=== PATIENT | female | born 1960 | race Two or more races ===

== ENCOUNTER 2016-08-24 19:53 | Inpatient (IN) | payer OTHER ==
[~2016-08-24] VITALS: Ht 162.6 cm; Wt 77.6 kg
--- NOTE | 2016-08-24 19:53 | NUR ---
PT TO ER [facility] FROM HOME FOR AMS, HYPOGLYCEMIA. PER EMS BS 51. PT GIVEN D10 IV CHUTE TAPPER. PT VITAL SIGNS STABLE UPON ARRIVAL. PT CHANGED INTO GOWN AND CONNECTED TO MONITOR. WILL CONT TO MONITOR PT.
--- NOTE | 2016-08-24 20:20 | NUR ---
PT TO CT VIA [facility]
[2016-08-24 20:43] LABS: BASOPHILS % (AUTO) 0.4 % (0.0-2.0); EOSINOPHILS # (AUTO) 0.1 /CMM (0.0-0.7); EOSINOPHILS % (AUTO) 0.8 % (0.0-6.0); HEMATOCRIT 36 % (33-45); HEMOGLOBIN 11.5 g/dL (11.5-14.8); LYMPHOCYTES # (AUTO) 1.5 /CMM (0.8-4.8); LYMPHOCYTES % (AUTO) 18.9 % (20.0-44.0); MEAN CORPUSCULAR HEMOGLOBIN 25 PG (26.0-33.0); MEAN CORPUSCULAR HGB CONC 32 g/dl (31.0-36.0); MEAN CORPUSCULAR VOLUME 79 fL (82-100); MONOCYTES # (AUTO) 0.2 /CMM (0.1-1.30); MONOCYTES % (AUTO) 2.4 % (2.0-12.0); NEUTROPHILS # (AUTO) 6.2 /CMM (1.8-8.9); NEUTROPHILS % (AUTO) 77.5 % (43.0-81.0); PLATELET COUNT (AUTO) 257 /CMM (150-450); RDW COEFFICIENT OF VARIATION 15.4 (11.5-15.0); RED BLOOD CELL COUNT(AUTO) 4.52 MIL/uL (4.0-5.2)
[2016-08-24 20:54] LABS: CALCIUM, SERUM 8.7 mg/dL (8.5-10.1); CREATININE 1.7 mg/dL (0.6-1.3); POTASSIUM 5.8 mmol/L (3.5-5.1)
--- NOTE | 2016-08-24 20:54 | NUR ---
CALLED NURSING SUP. FOR TELE BED
[2016-08-24 20:57] LABS: INR 0.94 (0.87-1.13); PROTHROMBIN TIME 9.8 SECS (9.5-12.7)
--- NOTE | 2016-08-24 20:58 | NUR ---
URINE SAMPLE COLLECTED AND SENT TO LAB.
[2016-08-24 20:59] LABS: ALBUMIN 3.5 g/dL (3.4-5.0); BILIRUBIN,DIRECT 0.1 mg/dL (0.0-0.2); BILIRUBIN,TOTAL 0.3 mg/dL (0.2-1.0); TOTAL PROTEIN, SERUM 7.8 g/dL (6.4-8.2)
[2016-08-24 21:03] LABS: APPEARANCE,URINE Clear (CLEAR); BILIRUBIN,URINE Negative (NEGATIVE); BLOOD, URINE Small Ery/uL (NEGATIVE); COLOR,URINE Yellow (YELLOW); KETONES,URINE Negative (NEGATIVE); LEUKOCYTE ESTERASE ,URINE Negative (NEGATIVE); NITRITE, URINE Negative (NEGATIVE); PROTEIN,URINE 100 mg/dl (NEGATIVE); UGLUCOSE Negative (NEGATIVE); UROBILINOGEN,URINE 0.2 EU/dL (0.2)
--- NOTE | 2016-08-24 21:11 | NUR ---
DR. CATRACHITO ANDRE
[2016-08-24] MEDS ORDERED: SODIUM POLYSTYRENE SULFONATE 15 G/60 ML BOTTLE ONE (21:24)
[2016-08-24] MEDS ORDERED: DEXTROSE 50%-WATER 50 ML DISP.SYRIN ONE (21:24)
[2016-08-24] MEDS ORDERED: INSULIN REGULAR, HUMAN 100 UNIT/ML 10 ML VIAL ONE (21:25)
[2016-08-24] MEDS ORDERED: INSULIN REGULAR, HUMAN 100 UNIT/ML 10 ML VIAL IV ONE (21:30)
[2016-08-24] MEDS ORDERED: DEXTROSE 50%-WATER 50 ML DISP.SYRIN IV ONE (21:30)
[2016-08-24] MEDS ORDERED: ALBUTEROL FS 2.5 MG/3 ML VIAL.NEB NEB ONE (21:30)
[2016-08-24] MEDS ORDERED: SODIUM POLYSTYRENE SULFONATE 15 G/60 ML BOTTLE PO ONE (21:30)
--- NOTE | 2016-08-24 21:34 | NUR ---
WITNESSED PARTH RAYMUNDO RN ADMINISTER REGULAR INSULIN 10UNITS IVP G20 RIGHT THUMB.
[2016-08-24 21:36] LABS: ADD URINE CULTURE NO; BACTERIA,URINE Few /HPF (None Seen); HYALINE CASTS, URINE Few /LPF (None Seen); SQUAMOUS EPITHELIAL CELL,UR Few /HPF (None Seen); WBC,URINE 0-2 /HPF (0-3)
[2016-08-24] MEDS ORDERED: ALBUTEROL FS 2.5 MG/3 ML VIAL.NEB ONE (21:40)
--- NOTE | 2016-08-24 21:43 | NUR ---
REPORT GIVEN TO FAN PATRICIA FOR CONTINUATION OF CARE.
--- NOTE | 2016-08-24 21:53 | NUR ---
PT TRANSFERED TO VIA [facility] Laurent/ EMT AND RN./
[2016-08-24 22:00] VITALS: BP 151/80
--- NOTE | 2016-08-24 22:07 | NUR ---
ADMISSION NOTES: RECEIVED REPORT FROM CHAVIRA MACHINE HOOP MAKER, PT ADMITTED DUE TO HYPOGLYCEMIA, PT BROUGHT OT THE UNIT VIA AARONRSANIA, A/O X3, GREEK SPEAKING ONLY, UNDERSTAND BASIC [place]RAELI, DAUGHTER AT BED SIDE. ORIENTED PT TO UNIT POLICY AND HOURLY ROUNDING, PT HAS RIGHT THUMB IV G 20 PATENT AND FLUSHING WELL. NOTED JENNIFER AND BOTH KNEE BRUISE TAKEN PICTURES ATTACHED TO CHART, PT'S DAUGHTER CANT RECALL PT'S HOME MEDS BUT STATED SHE WILL BRING ALL THE MEDS IN AM, SHE ALSO CANT REMEMBER IF PT TAKING BLOOD THINNER, EVEN PT CANT RECALL ALL HER MEDS. BARRY SILVEIRA [phone], PT'S DAUGHTER. PT FULL CODE. NO OTHER SKIN ISSUES NOTED. INVENTORY OF BELONGINGS COMPLETED BY AICHA DELGADO. SAFETY PRECAUTIONS FOR FALL INITIATED CALL LIGHT IN REACH, WILL CONTINUE TO MONITOR.
[2016-08-24 22:30] VITALS: BP 151/88
[2016-08-24] MEDS ORDERED: ACETAMINOPHEN 325 MG TABLET PO PRN ×2 (22:30)
[2016-08-24] MEDS ORDERED: DEXTROSE 50%-WATER 50 ML DISP.SYRIN IV PRN (22:30)
[2016-08-24] MEDS ORDERED: ZOLPIDEM TARTRATE 5 MG TABLET PO PRN (22:30)
[2016-08-24] MEDS ORDERED: HYDROCODONE/APAP 5/325MG 1 EACH TABLET PO PRN (22:30)
[2016-08-24] MEDS ORDERED: IV 1/2NS 1000 ML 1,000 ML IV SCH (22:30)
[2016-08-24] MEDS ORDERED: IV 1/2NS 1000 ML 1,000 ML IV ONE (22:47)
[2016-08-24] MEDS ORDERED: IV SET PRIMARY PUMP SET 1 EA INFUS.SET MC ONE (22:47)
[2016-08-24] MEDS: INSULIN REGULAR, HUMAN 100 UNIT/ML 3 ML VIAL SQ PRN (23:18)
[2016-08-24] MEDS: BLOOD SUGAR DIAGNOSTIC 1 EACH STRIP IN SCH (23:19)
--- NOTE | 2016-08-24 23:19 | NUR ---
AIR BATTLE MANAGER NOTES: CHECKED BLOOD SUGAR AND REVEAL 189, 3UNITS OF INSULIN GIVEN PER SLIDING SCALE, PT ON DIABETIC DIET WITH ONGOING 1/2NS AT 100ML/HR, PER CULLET CRUSHER AND WASHER FAN ADAMS TO GIVE INSULIN COVERAGE, WILL MONITOR FOR ANY S/S/ OF HYPO OR HYPERGLYCEMIA
[2016-08-25] VITALS: BP 105/59
--- NOTE | 2016-08-25 02:15 | NUR ---
FURNACE RELINER NOTES: IV ACCESS ON RIGHT THUMB UNABLE TO FLUSH, TRIED TO REINSERT IV ON ARMS AND HANDS BUT NOT SUCCESSFUL, CALLED COLOR FINISHER, SHE TRIED 3X BUT VEIN KEPT BLOWING, SHE FINALLY TRIED EJ, INSERTED IV ON LEFT EJ G 22, WILL GET AN ORDER FROM MD, PT REALLY NEED A LINE SINCE PT CAME DUE TO HYPOGLYCEMIA, PT FULL CODE
[2016-08-25] MEDS ORDERED: INSULIN REGULAR, HUMAN 100 UNIT/ML 10 ML VIAL ONE (03:54)
[2016-08-25 04:00] VITALS: BP 147/72
[2016-08-25 04:29] VITALS: BP 147/72
[2016-08-25 04:30] VITALS: BP 147/72
[2016-08-25] MEDS: BLOOD SUGAR DIAGNOSTIC 1 EACH STRIP IN SCH (06:34)
[2016-08-25 06:35] LABS: BASOPHILS % (AUTO) 0.3 % (0.0-2.0); EOSINOPHILS % (AUTO) 0.4 % (0.0-6.0); HEMATOCRIT 28 % (33-45); LYMPHOCYTES # (AUTO) 1.7 /CMM (0.8-4.8); LYMPHOCYTES % (AUTO) 15.6 % (20.0-44.0); MEAN CORPUSCULAR HEMOGLOBIN 26 PG (26.0-33.0); MEAN CORPUSCULAR HGB CONC 32 g/dl (31.0-36.0); MEAN CORPUSCULAR VOLUME 79 fL (82-100); MONOCYTES # (AUTO) 0.8 /CMM (0.1-1.30); MONOCYTES % (AUTO) 7.3 % (2.0-12.0); NEUTROPHILS # (AUTO) 8.4 /CMM (1.8-8.9); NEUTROPHILS % (AUTO) 76.4 % (43.0-81.0); PLATELET COUNT (AUTO) 245 /CMM (150-450); RDW COEFFICIENT OF VARIATION 16.2 (11.5-15.0); WHITE BLOOD COUNT (AUTO) 10.9 K/uL (4.3-11.0)
[2016-08-25] MEDS: INSULIN REGULAR, HUMAN 100 UNIT/ML 3 ML VIAL SQ PRN (06:35)
--- NOTE | 2016-08-25 06:35 | NUR ---
TRANSFUSION AIDE NOTES: CHECKED PT'S BLOOD SUGAR AND REVEAL 240, 4UNBITS OF INSULIN GIVEN PER SLIDING SCALE, PT ON 1800 ADA DIET, ALSO RECEIVING 1/2 NS AT 100ML/HR, WILL MONITOR PT FOR ANY SIGNS AND SYMPTOMS OF HYPOGLYCEMIA.
--- NOTE | 2016-08-25 06:55 | NUR ---
APPLICATIONS INSTRUCTOR NOTES: PER ANGIE KIM TO HAVE EXTERNAL JUGULAR IV ACCESS, EXPLAINED TO PT JESSI SORTO AND HYDROELECTRIC PRODUCTION MANAGER ONLY ABLE TO PLACED EJ IV ACCESS
--- NOTE | 2016-08-25 06:56 | NUR ---
SPEEDBOAT DRIVER CLOSING NOTES: PT SLEEPING, APPEARS CALM AND COMFORTABLE, REMAINS ON 2L VIA NC, NO FACIAL GRIMACE NOTED, LEFT EJ IV ACCESS REMAINS PATENT AND FLUSHING WELL, INFUSING WITH 1/2 NS AT 100ML/HR, REMAINS SINUS RHYTHM HR 75. VS REMAINS STABLE, NEEDS ATTENDED. PT'S DAUGHTER WILL BRING PT'S HOME MEDS IN AM. SAFETY PRECAUTION FOR FALL REMAINS ENGAGED, CALL LIGHT IN REACH, WILL ENDORSE TO DAY RN FOR DEX.
[2016-08-25 07:03] LABS: POTASSIUM 4.1 mmol/L (3.5-5.1)
--- NOTE | 2016-08-25 07:15 | NUR ---
RN NOTES RECEIVED PT IN BED. SLEEPING,EASY TO AROUSE. IN NO APPARENT DISTRESS. RESPIRATIONS EVEN AND UNLABORED. DENIES PAIN AND DISCOMFORT. CALL LIGHT WITHIN REACH. WILL CONTINUE TO MONITOR
[2016-08-25 07:23] LABS: ALBUMIN 2.8 g/dL (3.4-5.0); BILIRUBIN,TOTAL 0.2 mg/dL (0.2-1.0); CALCIUM, SERUM 7.5 mg/dL (8.5-10.1); CREATININE 1.8 mg/dL (0.6-1.3); TOTAL PROTEIN, SERUM 6.3 g/dL (6.4-8.2)
[2016-08-25 07:29] LABS: THYROID STIMULATING HORMONE 0.227 uIU/mL (0.358-3.74)
[2016-08-25 08:00] VITALS: BP 116/62
[2016-08-25] MEDS ORDERED: AMLODIPINE BESYLATE 10 MG TABLET PO SCH (09:00)
[2016-08-25 09:09] VITALS: BP 116/62
--- NOTE | 2016-08-25 09:30 | NUR ---
RN NOTES PT TOLERATED ALL MEDS. ATE 100% OF OFFERED BREAKFAST. SEEN AND EXAMINED BY DR WINSTON- WITH NEW ORDER FOR DISCHARGE HOME. NOTED AND CARRIED OUT. REPORTED TO MD PT'S COMPLAINT OF PAIN ON LEFT ARM AND SHOULDER- SAID NO APPARENT INJURY, NO NEED FOR XRAY. NOTED. DISCHARGE PAPERS AND INSTRUCTIONS DONE VIA EXIT CARE. DAUGHTER MADE AWARE OF ORDERS
--- NOTE | 2016-08-25 10:40 | NUR ---
RN NOTES PT DISCHARGED TO HOME ORDERED. VS WNL. IN NO DISTRESS. PICKED UP BY DAUGHTER; ASSISTED TO LOBBY BY ONE STAFF VIA WHEELCHAIR
== END 2016-08-25 10:35 | disposition home or self-care (01) | DRG 420 ==
LOC: ER 19:55 → TELE 21:24
PROVIDERS: ADMIT Internal Medicine; ATTEND Internal Medicine
DX: E11.649 Type 2 diabetes mellitus with hypoglycemia without coma (principal); G93.41 Metabolic encephalopathy; I12.9 Hypertensive chronic kidney disease with stage 1 through stage 4 chronic kidney disease, or unspecified chronic kidney disease; E11.22 Type 2 diabetes mellitus with diabetic chronic kidney disease; N18.9 Chronic kidney disease, unspecified; K21.9 Gastro-esophageal reflux disease without esophagitis; Z79.4 Long term (current) use of insulin; Z83.3 Family history of diabetes mellitus
CPT/HCPCS: 36415; 70450-TC; 71010-TC; 80048-TC; 80053-TC; 80061-TC; 80076-TC; 81000-TC; 82962-TC; 84443-TC; 85025-TC; 85730-TC; 87081-TC; A4606; J1815; J3490; Z7610

== ENCOUNTER 2017-08-08 17:09 | Inpatient (IN) | payer OTHER ==
[~2017-08-08] VITALS: Ht 160 cm; Wt 86.4 kg
[2017-08-08 10:00] VITALS: BP 138/85
[2017-08-08 11:50] VITALS: BP 118/57
--- NOTE | 2017-08-08 17:09 | NUR ---
[facility] for left flank pain since last night. facial grimacing noted. VSS RR even and unlabored. pending er md pinto
[2017-08-08] MEDS ORDERED: KETOROLAC TROMETHAMINE INJ 30 MG/ML VIAL IV STA (17:29)
[2017-08-08] MEDS ORDERED: KETOROLAC TROMETHAMINE INJ 30 MG/ML VIAL ONE (17:40)
[2017-08-08 17:41] LABS: BASOPHILS # (AUTO) 0.1 /CMM (0.0-0.2); BASOPHILS % (AUTO) 0.8 % (0.0-2.0); EOSINOPHILS % (AUTO) 2.9 % (0.0-6.0); HEMATOCRIT 35 % (33-45); HEMOGLOBIN 11.4 g/dL (11.5-14.8); LYMPHOCYTES # (AUTO) 2.4 /CMM (0.8-4.8); LYMPHOCYTES % (AUTO) 23.9 % (20.0-44.0); MEAN CORPUSCULAR HGB CONC 33 g/dl (31.0-36.0); MEAN CORPUSCULAR VOLUME 93 fL (82-100); MONOCYTES # (AUTO) 0.8 /CMM (0.1-1.30); NEUTROPHILS # (AUTO) 6.5 /CMM (1.8-8.9); NEUTROPHILS % (AUTO) 64.4 % (43.0-81.0); PLATELET COUNT (AUTO) 232 /CMM (150-450); RDW COEFFICIENT OF VARIATION 14.1 (11.5-15.0); RED BLOOD CELL COUNT(AUTO) 3.72 MIL/uL (4.0-5.2); WHITE BLOOD COUNT (AUTO) 10.1 K/uL (4.3-11.0)
--- NOTE | 2017-08-08 17:43 | NUR ---
Pt was medicated as ordered.
[2017-08-08 18:04] LABS: ALBUMIN 3.4 g/dL (3.4-5.0); BILIRUBIN,TOTAL 0.3 mg/dL (0.2-1.0); CALCIUM, SERUM 7.3 mg/dL (8.5-10.1); CREATININE 5.1 mg/dL (0.6-1.3); POTASSIUM 5.9 mmol/L (3.5-5.1); TOTAL PROTEIN, SERUM 7.5 g/dL (6.4-8.2)
--- NOTE | 2017-08-08 18:18 | NUR ---
In/Out catheter procedure done, no urine output noted. RICHARD Munoz notified.
[2017-08-08] MEDS ORDERED: DEXTROSE 50%-WATER 50 ML DISP.SYRIN IV ONE (19:00)
[2017-08-08] MEDS ORDERED: SODIUM POLYSTYRENE SULFONATE 15 G/60 ML BOTTLE PO ONE ×2 (19:00→21:00)
[2017-08-08] MEDS ORDERED: INSULIN REGULAR, HUMAN 100 UNIT/ML 10 ML VIAL IV ONE (19:00)
[2017-08-08] MEDS ORDERED: Calcium Gluconate 1GM/10ML 4.65 MEQ in IV D5W 50 ML IV ONE (19:00)
[2017-08-08] MEDS ORDERED: ALBUTEROL FS 2.5 MG/3 ML VIAL.NEB NEB ONE (19:00)
[2017-08-08] MEDS ORDERED: SODIUM BICARBONATE SYR 50 MEQ/50 ML DISP.SYRIN IV ONE (19:00)
[2017-08-08] MEDS ORDERED: CALCIUM CHLORIDE 1,000 MG/10 ML DISP.SYRIN IV ONE (19:00)
[2017-08-08] MEDS ORDERED: ALBUTEROL FS 2.5 MG/3 ML VIAL.NEB ONE (19:09)
--- NOTE | 2017-08-08 19:10 | NUR ---
REPORT GIVEN TO MO PATRICIA
[2017-08-08] MEDS ORDERED: ASPI-1152 PO (19:14)
[2017-08-08] MEDS ORDERED: ATOR80TA PO (19:14)
[2017-08-08] MEDS ORDERED: AMLO5TAB7 PO (19:14)
[2017-08-08] MEDS ORDERED: OXYC-133 PO (19:14)
[2017-08-08] MEDS ORDERED: TOLT4CAP PO (19:14)
[2017-08-08] MEDS ORDERED: NPH,100V SQ ×2 (19:14)
[2017-08-08] MEDS ORDERED: BUME1TAB4 PO ×2 (19:14)
[2017-08-08] MEDS ORDERED: SERT50TA PO (19:14)
[2017-08-08] MEDS ORDERED: CARV6.252 PO (19:14)
[2017-08-08] MEDS ORDERED: CALC667C6 PO (19:14)
[2017-08-08] MEDS ORDERED: OMEP40CA37 PO (19:14)
[2017-08-08] MEDS ORDERED: INSU100I14 SQ ×2 (19:14)
[2017-08-08] MEDS ORDERED: GABA-532 PO (19:14)
[2017-08-08] MEDS ORDERED: Calcium Gluconate 0.465 MEQ/ML VIAL IV ONE (19:19)
[2017-08-08] MEDS ORDERED: INSULIN REGULAR, HUMAN 100 UNIT/ML 10 ML VIAL ONE (19:20)
[2017-08-08] MEDS ORDERED: SODIUM BICARBONATE SYR 50 MEQ/50 ML DISP.SYRIN ONE (19:20)
[2017-08-08] MEDS ORDERED: DEXTROSE 50%-WATER 50 ML DISP.SYRIN ONE (19:20)
[2017-08-08] MEDS ORDERED: SODIUM POLYSTYRENE SULFONATE 15 G/60 ML BOTTLE ONE ×2 (19:20→22:53)
--- NOTE | 2017-08-08 19:25 | NUR ---
IV INSULIN DOSE WITNESSED AND VERIFIED W/ MO PATRICIA
--- NOTE | 2017-08-08 19:35 | NUR ---
TELE/RN NOTES RECEIVED PT. FROM ER [facility]IA [facility]. PT. IS AWAKE, ALERT AND ORIENTED X4. BREATHING EVEN AND UNLABORED ON 2LPM O2 VIA NC. NO SOB, RESPIRATORY DISTRESS OR COMPLAINTS OF PAIN NOTED AT THIS TIME. ORIENTED PT. TO ROOM. PLACED EXTERNAL TON CYLINDER INSPECTOR ON PT. CURRENT RHYTHM = SINUS RHYTHM HR 72. PT. WITH RIGHT AC 20 GAUGE IV SALINE LOCK PRESENT, PATENT AND INTACT. PT. WITH FAMILY MEMBER PRESENT AT BEDSIDE. BED LOCKED AND IN LOWEST POSITION, SIDE RAILS UP X2, BED ALARM ON, CALL LIGHT WITHIN REACH, WILL CONTINUE TO MONITOR. Addendum: 08/09/17 at 0303 by KELLEY PICKETT RN INCORRECT TIME NOTED: CORRECT TIME 2034.
[2017-08-08 19:47] LABS: APPEARANCE,URINE Cloudy (CLEAR); BILIRUBIN,URINE SMALL (NEGATIVE); BLOOD, URINE Negative Ery/uL (NEGATIVE); COLOR,URINE Yellow (YELLOW); KETONES,URINE Trace (NEGATIVE); LEUKOCYTE ESTERASE ,URINE Negative (NEGATIVE); NITRITE, URINE Negative (NEGATIVE); PROTEIN,URINE 100 mg/dl (NEGATIVE); UGLUCOSE Negative (NEGATIVE); UROBILINOGEN,URINE 0.2 EU/dL (0.2)
--- NOTE | 2017-08-08 19:47 | NUR ---
PAGED DR. MADDEN
--- NOTE | 2017-08-08 20:06 | NUR ---
TELE [phone]
--- NOTE | 2017-08-08 20:20 | NUR ---
REPORT GIVEN KELLEY
[2017-08-08 20:35] VITALS: BP 115/59
[2017-08-08 20:55] LABS: BACTERIA,URINE Rare /HPF (None Seen); RBC,URINE 0-2 /HPF (0-2); SQUAMOUS EPITHELIAL CELL,UR Few /HPF (None Seen); URINE AMORPHOUS URATE Many /HPF (None Seen); WBC,URINE 0-2 /HPF (0-3)
[2017-08-08] MEDS ORDERED: DEXTROSE 50%-WATER 50 ML DISP.SYRIN IV PRN (21:00)
[2017-08-08] MEDS ORDERED: *INSULIN REGULAR(HUMULIN R)HUM 100 UNIT/ML VIAL SQ PRN (21:00)
[2017-08-08] MEDS ORDERED: ZOLPIDEM TARTRATE 5 MG TABLET PO PRN (21:00)
[2017-08-08] MEDS ORDERED: INSULIN REGULAR, HUMAN 100 UNIT/ML 3 ML VIAL SQ PRN (21:00)
[2017-08-08] MEDS ORDERED: BLOOD SUGAR DIAGNOSTIC 1 EACH STRIP VI SCH (22:00)
--- NOTE | 2017-08-08 22:14 | NUR ---
TELE/RN NOTES SPOKE WITH DR. WINSTON TO CLARIFY PT. KAYEXALATE MEDICATION ORDER AND PT. ACCUCHECKS AND INSULIN ORDERED. NOTIFIED DR. WINSTON PT. IS ESRD RECEIVED DIALYSIS AND RECEIVED 30GRAMS OF KAYEXALATE IN THE ER. PER DR. WINSTON OK TO ADMINISTER TO PT. 60 GRAM KAYEXALATE X1 ORDERED. ALSO NOTIFIED DR. WINSTON PT. HAS ACHS ACCUCHECKS WITH MODERATE SLIDING SCALE ORDERED IN ADDITION TO NPH INSULIN 18 UNITS QPM AND INSULIN LISPRO 10 UNITS QPM. PT. BLOOD SUGAR IS 157 MG/DL. NO S/S OF HYPO/HYPERGLYCEMIA NOTED AT THIS TIME. PER DR. WINSTON NEW ORDERS: DISCONTINUE INSULIN SLIDING SCALE AND ADMINISTER TO PT. NPH 18 UNITS AND LISPRO 10 UNITS ORDERED. WILL CARRY OUT ORDERS. WILL CONTINUE TO MONITOR.
--- NOTE | 2017-08-08 22:20 | NUR ---
TELE/RN NOTES CALLED DR. WINSTON TO CLARIFY ORDERS. AWAITING CALL BACK FROM DR. WINSTON. WILL CONTINUE TO MONITOR. Addendum: 08/09/17 at 0432 by KELLEY PICKETT RN INCORRECT TIME NOTED: CORRECT TIME = 2210
[2017-08-08] MEDS: INSULIN LISPRO/ASPART 100 UNIT/ML CARTRIDGE SQ SCH (22:30)
[2017-08-08] MEDS: INSULIN NPH, HUMAN ISOPHANE 100 UNIT/ML VIAL SQ SCH (22:30)
[2017-08-08] MEDS ORDERED: ATORVASTATIN 40 MG TABLET PO SCH (22:30)
--- NOTE | 2017-08-08 22:50 | NUR ---
TELE/RN NOTES CALLED [facility] FOR ASSISTANCE. ATTEMPTED TO REMOVE KAYEXALATE MEDICATION ORDERED FROM [facility]. 2 BOTTLES OF KAYEXALATE (30G) AVAILABLE PER [facility]. WHEN REMOVING MEDICATION FROM [facility] WAS PROMPTED TO CHANGE DOSE TO ADMINISTER TO DOSAGE AVAILABLE, WAS ABLE TO REMOVE 1/2 OF PRESCRIBED DOSE FROM ONE [facility] AND WHEN ATTEMPTING TO REMOVE THE 2ND HALF FROM THE OTHER [facility] WAS UNABLE. PER [facility] OK FOR CHARGE NURSE TO OVERRIDE BECAUSE MEDICATION IS NOT A NARCOTIC AND PHARMACIST DOES NOT HAVE ACCESS TO [facility]. NOTIFIED CHARGE NURSE FAN WHO STATED SHE WILL OVERRIDE THE MEDICATION. WILL ADMINISTER TO PT. 60 GRAM KAYEXALATE MEDICATION ORDERED. CONTINUE TO MONITOR.
[2017-08-08] MEDS: BLOOD SUGAR DIAGNOSTIC 1 EACH STRIP IN SCH (22:56)
[2017-08-09] VITALS: BP 118/57
[2017-08-09 04:00] VITALS: BP 104/52
[2017-08-09 04:56] VITALS: BP 104/52
[2017-08-09 07:10] LABS: BASOPHILS # (AUTO) 0.1 /CMM (0.0-0.2); BASOPHILS % (AUTO) 1.2 % (0.0-2.0); HEMATOCRIT 33 % (33-45); HEMOGLOBIN 10.9 g/dL (11.5-14.8); LYMPHOCYTES # (AUTO) 2.3 /CMM (0.8-4.8); LYMPHOCYTES % (AUTO) 27.7 % (20.0-44.0); MEAN CORPUSCULAR HGB CONC 33 g/dl (31.0-36.0); MEAN CORPUSCULAR VOLUME 93 fL (82-100); MONOCYTES # (AUTO) 0.7 /CMM (0.1-1.30); MONOCYTES % (AUTO) 8.6 % (2.0-12.0); NEUTROPHILS # (AUTO) 4.9 /CMM (1.8-8.9); NEUTROPHILS % (AUTO) 58.5 % (43.0-81.0); PLATELET COUNT (AUTO) 210 /CMM (150-450); RDW COEFFICIENT OF VARIATION 14.8 (11.5-15.0); RED BLOOD CELL COUNT(AUTO) 3.53 MIL/uL (4.0-5.2); WHITE BLOOD COUNT (AUTO) 8.4 K/uL (4.3-11.0)
[2017-08-09] MEDS: BLOOD SUGAR DIAGNOSTIC 1 EACH STRIP IN SCH ×3 (07:21→17:09)
[2017-08-09] MEDS ORDERED: INSULIN NPH, HUMAN ISOPHANE 100 UNIT/ML VIAL SQ SCH ×4 (07:30→18:00)
[2017-08-09] MEDS ORDERED: PANTOPRAZOLE 40 MG TABLET.DR PO SCH (07:30)
[2017-08-09] MEDS ORDERED: INSULIN LISPRO/ASPART 100 UNIT/ML CARTRIDGE SQ SCH ×2 (07:30)
--- NOTE | 2017-08-09 07:30 | NUR ---
RECEIVED PT. IN AM ALERT AND ORIENTED X4.NO COMPLAINTS OFFERED.
--- NOTE | 2017-08-09 07:35 | NUR ---
TELE/RN NOTES PT. IS LYING IN BED RESTING. BREATHING EVEN AND UNLABORED ON 2LPM O2 VIA NC. NO SOB, RESPIRATORY DISTRESS OR COMPLAINTS OF PAIN NOTED AT THIS TIME. PT. WITH EXTERNAL SENIOR DATA MINING ANALYST ON PT. CURRENT RHYTHM = SINUS RHYTHM HR 73. PT. WITH RIGHT AC 20 GAUGE IV SALINE LOCK PRESENT, PATENT AND INTACT. ALL PT. NEEDS MET. NO S/S OF HYPO/HYPERGLYCEMIA NOTED AT THIS TIME AND THROUGHOUT SHIFT. BED LOCKED AND IN LOWEST POSITION, SIDE RAILS UP X2, BED ALARM ON, CALL LIGHT WITHIN REACH, WILL ENDORSE TO DAYSHIFT NURSE FOR CONTINUITY OF CARE.
--- NOTE | 2017-08-09 07:42 | NUR ---
TELE/RN NOTES PT. BLOOD SUGAR = 170MG/DL. PT. REFUSING SCHEDULED INSULIN AT THIS TIME. EDUCATED PT. ON IMPORTANCE OF CONTROLLING BLOOD SUGAR LEVELS. PT. VERBALIZED AND CONTINUES TO REFUSE STATING HER BLOOD SUGAR WILL BE CHECKED AGAIN BEFORE LUNCH. NO S/S OF HYPO/HYPERGLYCEMIA NOTED AT THIS TIME.
[2017-08-09 07:44] LABS: CALCIUM, SERUM 6.8 mg/dL (8.5-10.1); CREATININE 5.5 mg/dL (0.6-1.3); POTASSIUM 5.1 mmol/L (3.5-5.1)
[2017-08-09 08:00] VITALS: BP 114/61
--- NOTE | 2017-08-09 08:00 | NUR ---
DR. WINSTON IN TO SEE PT. ORDERS GIVEN.
[2017-08-09] MEDS ORDERED: INSULIN ASPART/LISPRO 100 UNIT/ML CARTRIDGE SQ PRN (08:30)
[2017-08-09] MEDS ORDERED: oxyCODONE/APAP (5/325 MG) 1 UDTAB TABLET PO PRN (08:30)
[2017-08-09] MEDS ORDERED: TOLTERODINE 2 MG CAP.SR PO SCH (09:00)
[2017-08-09] MEDS ORDERED: SERTRALINE HCL 50 MG TABLET PO SCH (09:00)
[2017-08-09] MEDS ORDERED: BUMETANIDE (1 MG) 1 MG TABLET PO SCH ×3 (09:00→18:00)
[2017-08-09] MEDS: CARVEDILOL 6.25 MG TABLET PO SCH ×2 (09:00→17:10)
[2017-08-09] MEDS ORDERED: ASPIRIN EC 81 MG TABLET.DR PO SCH (09:00)
[2017-08-09] MEDS ORDERED: GABAPENTIN 100 MG CAPSULE PO SCH (09:00)
[2017-08-09] MEDS ORDERED: AMLODIPINE BESYLATE 5 MG TABLET PO SCH (09:00)
[2017-08-09] MEDS: CALCIUM ACETATE 667 MG TABLET PO SCH ×2 (13:35→17:09)
--- NOTE | 2017-08-09 14:30 | NUR ---
DIALYSIS COMPLETED.REMOVED 1.5 LITERS.VS STABLE.
[2017-08-09 16:00] VITALS: BP 146/66
[2017-08-09 17:10] VITALS: BP 146/66
[2017-08-09] MEDS: INSULIN LISPRO/ASPART 100 UNIT/ML CARTRIDGE SQ SCH (17:41)
[2017-08-09] MEDS: INSULIN NPH, HUMAN ISOPHANE 100 UNIT/ML VIAL SQ SCH (17:43)
--- NOTE | 2017-08-09 18:30 | NUR ---
NO CHG. IN STATUS.AWAITING DTR. TO STILL TENDER.
--- NOTE | 2017-08-09 19:05 | NUR ---
DTR. HERE.GIVEN STATUS REPORT ON MOM.ALL PAPERS SIGNED.HEP LOCK OUT.GIVEN RX FOR PAIN.DTR. INSTRUCTED TO TAKE ALL INFO TO PTS TAKEN TO LOBBY ACCOMPANIED BY DTR. AND ORGANIC SEARCH LEAD.
[2017-08-09] MEDS ORDERED: ATORVASTATIN 40 MG TABLET PO SCH (22:00)
== END 2017-08-09 19:00 | disposition home or self-care (01) | DRG 425 ==
LOC: ER 17:10 → TELE 20:08 → MED 08-09 08:13
PROVIDERS: ADMIT Internal Medicine; ATTEND Internal Medicine
PROC: 5A1D70Z Performance of Urinary Filtration, Intermittent, Less than 6 Hours Per Day (ICD-10-PCS; principal; 2017-08-09)
DX: E87.5 Hyperkalemia (principal); E11.22 Type 2 diabetes mellitus with diabetic chronic kidney disease; I12.0 Hypertensive chronic kidney disease with stage 5 chronic kidney disease or end stage renal disease; E83.9 Disorder of mineral metabolism, unspecified; N18.6 End stage renal disease; D64.9 Anemia, unspecified; S39.012A Strain of muscle, fascia and tendon of lower back, initial encounter; F32.9 Major depressive disorder, single episode, unspecified; E78.5 Hyperlipidemia, unspecified; Z99.2 Dependence on renal dialysis; K21.9 Gastro-esophageal reflux disease without esophagitis; Z79.4 Long term (current) use of insulin; X58.XXXA Exposure to other specified factors, initial encounter; Y93.9 Activity, unspecified; Y92.009 Unspecified place in unspecified non-institutional (private) residence as the place of occurrence of the external cause; E66.9 Obesity, unspecified; Z68.33 Body mass index [BMI] 33.0-33.9, adult; D17.79 Benign lipomatous neoplasm of other sites
CPT/HCPCS: 36415; 71045-TC; 80048-TC; 80053-TC; 81000-TC; 82962-TC; 83690-TC; 84484-TC; 85025-TC; 87081-TC; 87086-TC; 90935-TC; A4606; J0610; J1815; J1885; J3490; J7060; Z7610